=== PATIENT | female | born 1980 | race Caucasian/White ===

== ENCOUNTER 2017-09-17 14:19 | Emergency (ER) | payer SELFPAY ==
[~2017-09-17] VITALS: Ht 160 cm; Wt 157.7 kg
[2017-09-17 18:29] LABS: HEMATOCRIT 42.6 % (36.0-46.0); HEMOGLOBIN 14.6 G/DL (11.9-15.5); MCH 32.4 PG (29.0-34.0); MCHC 34.3 G/DL (30.0-36.0); MCV 94.5 FL (83-99); PLATELET COUNT 177 K/uL (156-360); RBC DIS.WIDTH-CV 15.4 % (11.8-14.6); RBC DIS.WIDTH-SD 53.3 % (39-53); RED BLOOD COUNT 4.51 M/uL (3.80-5.20); WHITE BLOOD COUNT 7.2 K/uL (4.1-10.2)
[2017-09-17 18:48] LABS: CHLORIDE 106 mEq/L (99-109); POTASSIUM 4.2 mEq/L (3.7-5.4); SODIUM 138 mEq/L (136-147)
[2017-09-17 18:50] LABS: GLUCOSE 90 mg/dL (70-99)
[2017-09-17 18:53] LABS: CREATININE 0.8 mg/dL (0.6-1.3); GFR ESTIMATE (CALCULATED) > 59 mL/min/
[2017-09-17 18:54] LABS: UREA NITROGEN (BUN) 14 mg/dL (9-23)
[2017-09-17] MEDS ORDERED: KEFLEX500 MG PO (20:49)
[2017-09-17 21:29] VITALS: BP 129/91
== END 2017-09-17 21:29 | disposition home or self-care (01) ==
LOC: EME 14:19
PROVIDERS: Nurse Practitioner Family
DX: L03.116 Cellulitis of left lower limb (principal); L03.115 Cellulitis of right lower limb; R60.0 Localized edema; I10 Essential (primary) hypertension
CPT/HCPCS: 80048; 85027; 93970; 99281; 99285